=== PATIENT | male | born 1995 | race Caucasian/White ===

== ENCOUNTER 2023-03-04 07:10 | Outpatient (CLI) | payer OTHER | END 2023-03-04 07:12 | disposition home or self-care (01) | LOC: LAB 07:10 | DX: R68.89 Other general symptoms and signs (principal); I11.9 Hypertensive heart disease without heart failure; E78.00 Pure hypercholesterolemia, unspecified; R31.9 Hematuria, unspecified; E03.9 Hypothyroidism, unspecified; E11.9 Type 2 diabetes mellitus without complications ==

== ENCOUNTER 2023-06-17 08:26 | Outpatient (CLI) | payer OTHER ==
[2023-06-17 09:42] LABS: PH,URINE 6.5 (5.0-8.0); URINE APPEARANCE Clear; URINE BILIRRUBIN Negative (NEGATIVE); URINE BLOOD Negative; URINE COLOR Yellow; URINE GLUCOSE Negative (NEGATIVE); URINE LEUKOCYTE Negative; URINE NITRATE Negative; URINE PROTEIN Negative (NEGATIVE); URINE UROBILINOGEN 0.2 E.U./dl
[2023-06-17 09:46] LABS: URINE WBC 2.1 uL (0.0-23.2)
[2023-06-17 09:51] LABS: HEMATOCRIT 46.7 % (39.0-48.0); HEMOGLOBIN 16.1 g/dL (13-16.00); MEAN CELL VOLUME 86.1 fL (80.0-100.00); MEAN CORPUSCULAR HEMOGLOBIN 29.7 pg (27.00-32.0); MEAN CORPUSCULAR HGB CONC 34.5 g/dl (32.0-36.0); PLATELET COUNT 225 K/uL (150-450); RED BLOOD COUNT 5.42 M/uL (4.00-6.00); RED CELL DISTRIBUTION WIDTH 13.6 % (11.5-14.5)
[2023-06-17 09:58] LABS: URINE BACTERIA 1.2 uL (0.0-1933); URINE RBC 1.5 uL (0.0-20.8)
[2023-06-17 10:32] LABS: ALBUMIN 3.9 gm/dL (3.4-5.0); BILIRUBIN TOTAL 0.76 mg/dL (0.3-1.2); CALCIUM 9.4 mg/dL (8.5-10.1); CHOL HDL RATIO 4.1 (0-5.0); CREATININE SERUM 1.23 mg/dL (0.70-1.30); GFR 69.57; GLOBULINA 3.8 G/DL (2.4-3.5); POTASSIUM 4.35 mEq/L (3.5-5.1); T4 TOTAL 7.19 UG/DL (4.5-12.1); TOTAL PROTEIN 7.7 gm/dL (6.4-8.2); TSH 1.02 uIU/mL (0.358-3.74)
== END 2023-06-17 08:32 | disposition home or self-care (01) ==
LOC: LAB 08:26
PROVIDERS: ATTEND Internal Medicine
DX: R68.89 Other general symptoms and signs (principal); I11.9 Hypertensive heart disease without heart failure; E78.00 Pure hypercholesterolemia, unspecified; R31.9 Hematuria, unspecified; E03.9 Hypothyroidism, unspecified; E11.9 Type 2 diabetes mellitus without complications

== ENCOUNTER → 2024-07-03 06:37 | Outpatient (CLI) | payer OTHER ==
[2024-07-03 07:31] LABS: PH,URINE 5.5 (5.0-8.0); URINE APPEARANCE Clear; URINE BILIRRUBIN Negative (NEGATIVE); URINE BLOOD Negative; URINE COLOR Yellow; URINE GLUCOSE Negative (NEGATIVE); URINE KETONE Negative (NEGATIVE); URINE LEUKOCYTE Negative; URINE NITRATE Negative; URINE PROTEIN Negative (NEGATIVE); URINE UROBILINOGEN 0.2 E.U./dl
[2024-07-03 07:37] LABS: URINE EPITHELIAL CELLS 0.6 uL (0.0-38.8); URINE RBC 0.5 uL (0.0-20.8)
[2024-07-03 08:18] LABS: HEMATOCRIT 46.4 % (39.0-48.0); HEMOGLOBIN 15.4 g/dL (13-16.00); MEAN CELL VOLUME 84.7 fL (80.0-100.00); MEAN CORPUSCULAR HEMOGLOBIN 28.1 pg (27.00-32.0); MEAN CORPUSCULAR HGB CONC 33.2 g/dl (32.0-36.0); PLATELET COUNT 209 K/uL (150-450); RED BLOOD COUNT 5.49 M/uL (4.00-6.00)
[2024-07-03 09:05] LABS: ALBUMIN 3.7 gm/dL (3.4-5.0); BILIRUBIN TOTAL 0.44 mg/dL (0.3-1.2); CALCIUM 9.1 mg/dL (8.5-10.1); CHOL HDL RATIO 5.8 (0-5.0); CREATININE SERUM 1.08 mg/dL (0.70-1.30); GFR 80.28; GLOBULINA 3.8 G/DL (2.4-3.5); POTASSIUM 4.02 mEq/L (3.5-5.1); T4 TOTAL 8.14 UG/DL (4.5-12.1); TOTAL PROTEIN 7.5 gm/dL (6.4-8.2); TSH 2.02 uIU/mL (0.358-3.74)
== END | disposition home or self-care (01) ==
LOC: LAB 06:37
PROVIDERS: ATTEND Internal Medicine
DX: I11.9 Hypertensive heart disease without heart failure (principal); R68.89 Other general symptoms and signs; R31.9 Hematuria, unspecified; E78.00 Pure hypercholesterolemia, unspecified; E11.9 Type 2 diabetes mellitus without complications

== ENCOUNTER 2024-11-23 07:32 | Outpatient (CLI) | payer OTHER ==
[2024-11-23 09:00] LABS: BASO % 0.5 % (0.1-1.2); EOS # 0.16 (0.04-0.54); EOS % 2.5 % (0.7-7.0); HEMATOCRIT 45.2 % (40.1-51.0); HEMOGLOBIN 15.3 g/dL (13.7-17.5); LYMPH # 1.61 (1.18-3.74); LYMPH % 25.6 % (19.3-53.1); MEAN CORPUSCULAR HEMOGLOBIN 28.3 pg (25.6-32.2); MONO # 0.31 (0.24-0.82); MONO % 4.9 % (4.7-12.5); NEUT # 4.13 (1.56-6.13); NEUT % 65.9 % (34.0-71.1); PLATELET COUNT 226 K/uL (163-369); RED BLOOD COUNT 5.41 M/uL (4.63-6.08); RED CELL DISTRIBUTION WIDTH 12.9 % (11.6-14.4)
[2024-11-23 09:13] LABS: PH,URINE 6.5 (5.0-8.0); URINE APPEARANCE Cloudy; URINE BILIRRUBIN Negative (NEGATIVE); URINE BLOOD Negative; URINE COLOR Yellow; URINE GLUCOSE Negative (NEGATIVE); URINE KETONE Negative (NEGATIVE); URINE LEUKOCYTE Negative; URINE NITRATE Negative; URINE PROTEIN Negative (NEGATIVE)
[2024-11-23 09:18] LABS: URINE BACTERIA 7.3 uL (0.0-1933); URINE EPITHELIAL CELLS 1.4 uL (0.0-38.8); URINE WBC 4.2 uL (0.0-23.2)
[2024-11-23 09:27] LABS: URINE RBC 0.8 uL (0.0-20.8)
[2024-11-23 10:01] LABS: ALBUMIN 3.8 gm/dL (3.4-5.0); BILIRUBIN TOTAL 0.33 mg/dL (0.3-1.2); CALCIUM 9.5 mg/dL (8.5-10.1); CHOL HDL RATIO 4.8 (0-5.0); CREATININE SERUM 1.04 mg/dL (0.70-1.30); GFR 83.85; GLOBULINA 3.8 G/DL (2.4-3.5); POTASSIUM 4.12 mEq/L (3.5-5.1); T4 TOTAL 8.24 UG/DL (4.5-12.1); TOTAL PROTEIN 7.6 gm/dL (6.4-8.2); TSH 1.42 uIU/mL (0.358-3.74)
== END 2024-11-23 09:31 | disposition home or self-care (01) ==
LOC: LAB 07:32
PROVIDERS: ATTEND Internal Medicine
DX: R68.89 Other general symptoms and signs (principal); I11.9 Hypertensive heart disease without heart failure; E78.00 Pure hypercholesterolemia, unspecified; R31.9 Hematuria, unspecified; E03.9 Hypothyroidism, unspecified; E11.9 Type 2 diabetes mellitus without complications

== ENCOUNTER 2025-05-10 07:40 | Outpatient (CLI) | payer OTHER ==
[2025-05-10 08:58] LABS: BASO % 0.5 % (0.1-1.2); EOS # 0.20 (0.04-0.54); EOS % 3.6 % (0.7-7.0); LYMPH # 1.18 (1.18-3.74); LYMPH % 21.0 % (19.3-53.1); MEAN PLATELET VOLUME 11.20 fl (9.4-12.4); MONO # 0.32 (0.24-0.82); MONO % 5.7 % (4.7-12.5); NEUT # 3.88 (1.56-6.13); NEUT % 69.0 % (34.0-71.1); RED CELL DISTRIBUTION WIDTH 13.2 % (11.6-14.4)
[2025-05-10 09:01] LABS: URINE APPEARANCE Clear; URINE BILIRRUBIN Negative (NEGATIVE); URINE BLOOD Negative; URINE COLOR Yellow; URINE GLUCOSE Negative (NEGATIVE); URINE KETONE Trace (NEGATIVE); URINE LEUKOCYTE Negative; URINE NITRATE Negative; URINE PROTEIN Trace (NEGATIVE); URINE UROBILINOGEN 1.0 E.U./dl
[2025-05-10 09:04] LABS: URINE BACTERIA 4.7 uL (0.0-1933)
[2025-05-10 09:49] LABS: URINE CAST 0.29 uL (0.0-1.40); URINE EPITHELIAL CELLS 1.3 uL (0.0-38.8); URINE RBC 1.1 uL (0.0-20.8); URINE WBC 1.3 uL (0.0-23.2)
[2025-05-10 11:23] LABS: ALT/SGPT 66.0 U/L (12-78); AST/SGOT 27.0 U/L (15-37); BILIRUBIN TOTAL 0.45 mg/dL (0.3-1.2); BUN CREA RATIO 9.0 (7.0-25.0); CHOL HDL RATIO 4.6 (0-5.0); CREATININE SERUM 1.23 mg/dL (0.70-1.30); GFR 68.63; GLOBULINA 3.8 G/DL (2.4-3.5); GLUCOSE FASTING 88.0 mg/dL (65-100); HDL 35.0 mg/dl (40-60); LDL 102.0 mg/dl (0-130); OSMOLALITY SERUM 280.0 MOSM/KG (275-295); T4 TOTAL 7.57 UG/DL (4.5-12.1); TSH 1.84 uIU/mL (0.358-3.74); VLDL 25.0 (0-39)
== END 2025-05-10 07:44 | disposition home or self-care (01) ==
LOC: LAB 07:40
PROVIDERS: ATTEND Internal Medicine
DX: R68.89 Other general symptoms and signs (principal); I11.9 Hypertensive heart disease without heart failure; E78.00 Pure hypercholesterolemia, unspecified; R31.9 Hematuria, unspecified; E03.9 Hypothyroidism, unspecified; E11.9 Type 2 diabetes mellitus without complications